=== PATIENT | male | born 2000 | race Caucasian/White ===

== ENCOUNTER 2023-08-28 14:14 | Emergency (ER) | payer MEDICAID ==
[~2023-08-28] VITALS: Ht 165.1 cm; Wt 68.0 kg
[2023-08-28 14:19] VITALS: BP 135/61; PULSE 72; RESP 20; TEMP 97.4; O2SAT 98
[2023-08-28] MEDS: KETOROLAC 30 MG/ML VIAL IM ONE (14:59)
[2023-08-28] MEDS: LIDOCAINE 2% 1000 MG/50 ML VIAL INJ ONE (15:12)
[2023-08-28 15:18] VITALS: O2SAT 98
[2023-08-28 16:16] VITALS: BP 135/61; PULSE 72; RESP 20; TEMP 97.4; O2SAT 98
== END 2023-08-28 15:49 | disposition home or self-care (01) ==
LOC: MED 14:14
DX: S00.85XA Superficial foreign body of other part of head, initial encounter (principal); X58.XXXA Exposure to other specified factors, initial encounter; Y93.89 Activity, other specified; Y92.89 Other specified places as the place of occurrence of the external cause; Y99.8 Other external cause status
CPT/HCPCS: 70360; 90471; 90715; 96372; 99284; J1885; J2001; 40804; 96374